=== PATIENT | female | born 1985 | race Caucasian/White ===

== ENCOUNTER 2017-11-04 09:50 | Inpatient (IN) | payer OTHER ==
[~2017-11-04] VITALS: Ht 160 cm; Wt 86.2 kg
[~2017-11-04 09:50] MED LIST: FERR-252 PO; PREN-385 PO
[2017-11-04] MEDS ORDERED: OXYTOCIN 20 UNITS in LACTATED RINGERS 1,000 ML IV SCH (10:27)
[2017-11-04] MEDS: LACTATED RINGERS 1,000 ML IV SCH ×2 (11:56→15:15)
[2017-11-04] MEDS ORDERED: AMPICILLIN 2,000 MG in NACL 0.9% 100 ML IV SCH (12:00)
[2017-11-04 12:07] LABS: BASOPHILS # (AUTO) 0.1 K/uL (0.00-0.22); BASOPHILS % (AUTO) 0.9 % (0.0-2.0); EOSINOPHILS # (AUTO) 0.1 K/uL (0-0.4); EOSINOPHILS % (AUTO) 0.5 % (0.0-4.0); HEMATOCRIT 35.1 % (36-48); HEMOGLOBIN 11.7 g/dL (12.0-16.0); LYMPHOCYTES # (AUTO) 1.9 K/uL (2.5-16.5); LYMPHOCYTES % (AUTO) 16.1 % (20.5-51.1); MEAN CORPUSCULAR HEMOGLOBIN 30 pg (27-31); MEAN CORPUSCULAR HGB CONC 33 g/dL (33-37); MEAN CORPUSCULAR VOLUME 88.7 fL (80-94); MONOCYTES # (AUTO) 0.4 K/uL (0.8-1.0); MONOCYTES % (AUTO) 3.5 % (1.7-9.3); NEUTROPHILS # (AUTO) 9.4 K/uL (1.8-7.7); PLATELET COUNT (AUTO) 200 K/uL (140-450); RED BLOOD CELL COUNT(AUTO) 3.96 MIL/uL (4.20-5.40); WHITE BLOOD COUNT (AUTO) 11.9 K/uL (4.8-10.8)
[2017-11-04 12:14] LABS: ANION GAP 13.3 (8-16); CARBON DIOXIDE 24.7 mmol/L (21-32); CREATININE 0.6 mg/dL (0.6-1.3)
[2017-11-04 12:19] LABS: ALBUMIN 2.5 g/dL (3.4-5.0); TOTAL BILIRUBIN 0.4 mg/dL (0.0-1.0)
[2017-11-04] MEDS ORDERED: AMPICILLIN 2,000 MG VIAL ONE (12:20)
[2017-11-04] MEDS: BETAMETH ACET/BETAMETH NA PH 30 MG/5 ML VIAL IM SCH (12:29)
[2017-11-04 12:34] LABS: APPEARANCE,URINE CLEAR (CLEAR); BILIRUBIN,URINE NEGATIVE (NEGATIVE); BLOOD, URINE TRACE-L (NEGATIVE); COLOR,URINE YELLOW (YELLOW); LEUKOCYTE ESTERASE ,URINE NEGATIVE (NEGATIVE); NITRITE, URINE NEGATIVE (NEGATIVE); UGLUCOSE NEGATIVE (NEGATIVE)
[2017-11-04 12:47] LABS: RBC,URINE 0-5 (RARE) /HPF (0-5); WBC,URINE 0-5 (RARE) /HPF (0-5)
[2017-11-04 15:55] VITALS: BP 109/76
[2017-11-04] MEDS ORDERED: AMPICILLIN 1,000 MG VIAL ONE ×2 (16:11→20:00)
[2017-11-04] MEDS: AMPICILLIN 1,000 MG in NACL 0.9% 50 ML IV SCH ×2 (16:24→20:28)
[2017-11-05] MEDS ORDERED: AMPICILLIN 1,000 MG VIAL ONE ×6 (00:16→20:29)
[2017-11-05] MEDS ORDERED: BETAMETH ACET/BETAMETH NA PH 30 MG/5 ML VIAL IM ONE (00:27)
[2017-11-05] MEDS: BETAMETH ACET/BETAMETH NA PH 30 MG/5 ML VIAL IM SCH (00:30)
[2017-11-05] MEDS: AMPICILLIN 1,000 MG in NACL 0.9% 50 ML IV SCH ×6 (00:37→20:34)
[2017-11-05] MEDS: LACTATED RINGERS 1,000 ML IV SCH ×4 (02:41→19:57)
--- NOTE | 2017-11-05 11:24 | NUR ---
PATIENT HAS BEEN SCREENED AND CATEGORIZED LOW NUTRITION RISK. PATIENT WILL BE SEEN WITHIN 7 DAYS OF ADMISSION. 11/10/[address]
[2017-11-05] MEDS ORDERED: OXYTOCIN 20 UNITS in LACTATED RINGERS 1,000 ML IV SCH (14:15)
[2017-11-05] MEDS ORDERED: BUPIVACAINE 0.125%/NS PREMIX 250 ML ONE (17:51)
[2017-11-05] MEDS ORDERED: BUPIVACAINE 0.125%/NS PREMIX 250 ML EPI SCH (18:25)
[2017-11-06] MEDS: AMPICILLIN 1,000 MG in NACL 0.9% 50 ML IV SCH (01:08)
[2017-11-06] MEDS ORDERED: AMPICILLIN 1,000 MG VIAL ONE (01:08)
[2017-11-06] MEDS ORDERED: OXYTOCIN 10 UNITS/ML VIAL ONE (01:29)
[2017-11-06] MEDS ORDERED: IBUPROFEN 800 MG TAB PO PRN (02:20)
[2017-11-06] MEDS ORDERED: BENZOCAINE/MENTHOL 20%-0.5% 60 GM CAN TP PRN (02:20)
[2017-11-06] MEDS ORDERED: OXYTOCIN 10 UNITS/ML VIAL IM PRN ×2 (02:20→02:30)
[2017-11-06] MEDS ORDERED: TEMAZEPAM 15 MG CAP PO PRN (02:20)
[2017-11-06] MEDS ORDERED: HYDROcodone/APAP 5/325 MG 1 TAB TAB PO PRN (02:20)
[2017-11-06] MEDS ORDERED: MEASLES, MUMPS, AND RUBELLA 1 VIAL SQVAC PRN (02:20)
[2017-11-06] MEDS ORDERED: METHYLERGONOVINE 0.2 MG/ML AMP IM PRN (02:20)
[2017-11-06] MEDS ORDERED: oxyCODONE/APAP 5/325 MG 1 TAB TAB PO PRN (02:20)
[2017-11-06 12:00] LABS: RAPID PLASMA REAGIN NON-REACTIVE (Non Reactiv)
[2017-11-06] MEDS ORDERED: DOCUSATE SOD/SENNA 50/8.6 MG 1 TAB PO SCH (21:00)
[2017-11-07 09:18] LABS: HEMATOCRIT 32.2 % (36-48); HEMOGLOBIN 10.5 g/dL (12.0-16.0)
[2017-11-08] MEDS ORDERED: IBUP-2213 PO (10:10)
== END 2017-11-08 14:20 | disposition home or self-care (01) | DRG 560 ==
LOC: MLD 09:50 → OBSVTOIN 10:47 → MFCC 15:01
PROVIDERS: ADMIT Obstetrics & Gynecology; ATTEND Obstetrics & Gynecology
PROC: 3E0R3BZ Introduction of Anesthetic Agent into Spinal Canal, Percutaneous Approach (ICD-10-PCS; principal; 2017-11-06)
PROC: 10E0XZZ Delivery of Products of Conception, External Approach (ICD-10-PCS; 2017-11-06)
PROC: 00HU33Z Insertion of Infusion Device into Spinal Canal, Percutaneous Approach (ICD-10-PCS; 2017-11-06)
DX: O42.113 Preterm premature rupture of membranes, onset of labor more than 24 hours following rupture, third trimester (principal); O69.81X0 Labor and delivery complicated by cord around neck, without compression, not applicable or unspecified; O89.4 Spinal and epidural anesthesia-induced headache during the puerperium; Z3A.34 34 weeks gestation of pregnancy; Z37.0 Single live birth; Z28.21 Immunization not carried out because of patient refusal
CPT/HCPCS: 36415; 51702; 59409; 76805; 76815; 80053; 81001; 85018; 85025; 86592; 86886; 86900; 86901; G0378; J0290; J0702; J2590; J3490; J7120; Q0092